=== PATIENT | female | born 1950 | race Caucasian/White ===

== ENCOUNTER 2022-06-14 08:01 | Emergency (ER) | payer MEDICARE, BC, SELFPAY ==
[2022-06-14 08:18] VITALS: BP 174/79; PULSE 60; RESP 18; TEMP 36.6; O2SAT 100; BMI 19.7
--- NOTE | 2022-06-14 08:33 | ED.FALL ---
HPI - Fall General Chief Complaint: Fall Stated Complaint: fall LT shoulder injury t-1 Time Seen by Provider: 06/14/22 08:33 Source: patient Mode of arrival: Ambulatory History of Present Illness HPI Narrative: Patient is a 71-year-old healthy female who presents with left shoulder pain. She says she fell in the dark yesterday around 2:00 p.m. landing on her left shoulder. She did hit her head but there was no loss of consciousness no nausea vomiting. She is not on any antiplatelet or anticoagulation medication. She denies any numbness tingling or weakness or neck pain. She says she was unable to sleep last night despite 400 mg of ibuprofen due to left shoulder pain. She is significant decreased range of motion. Related Data Previous Rx's Medication Instructions Recorded hydrocodone 5 mg-acetaminophen 325 1 tab PO Q6H PRN pain #10 tabs 06/14/22 mg tablet ondansetron 4 mg disintegrating 4 mg PO Q8H PRN nausea and 06/14/22 tablet vomiting #10 tabs Allergies Allergy/AdvReac Type Severity Reaction Status Date / Time codeine Allergy Verified 06/14/22 08:18 latex Allergy Verified 06/14/22 08:18 Sulfa (Sulfonamide Allergy Verified 06/14/22 08:18 Antibiotics) Patient History Social History Smoking Status: Never smoker Smoking Status: Never smoker Substance Use Type: marijuana Exam Initial Vital Signs Initial Vital Signs: Vital Signs Temperature 97.9 F 06/14/22 08:18 Pulse Rate 60 06/14/22 08:18 Respiratory Rate 18 06/14/22 08:18 Blood Pressure 174/79 H 06/14/22 08:18 Pulse Oximetry 100 06/14/22 08:18 Oxygen Delivery Method 06/14/22 08:18 GENERAL: [Well-appearing, well-nourished] and in [no acute] distress. HEENT: Head atraumatic, very small contusion over left eye but no eye swelling,EOMI, pupils reactive, face symmetric, [moist] mucous membranes NECK: No vertebral tenderness no step-off CARDIOVASCULAR: Regular rate and rhythm without murmurs, rubs or gallops. RESPIRATORY: Breath sounds equal bilaterally, no wheezes rales or rhonchi. EXTREMITIES: Normal range of motion, no clubbing or edema. Neurovascularly intact NEUROLOGICAL: Alert and oriented x4. SKIN: Warm, dry, no laceration, no petechiae, no rashes or lesions. Course Orders Ordered: ED Orders 06/14/22 08:42 Chest [XR chest 2V] Stat XR shoulder LT min 2V Stat Vital Signs Vital signs: Vital Signs - 8 hr 06/14/22 08:18 Temperature 97.9 F Pulse Rate 60 Respiratory Rate 18 Blood Pressure 174/79 H Pulse Oximetry 100 Oxygen Delivery Method Room Air MDM - Fall Imaging Data Extremity x-ray #1: Radiologist's Impression: Comminuted humeral head fracture without dislocation Chest x-ray: Radiologist's Impression: No acute pulmonary process MDM Narrative Medical decision making narrative: Patient had mechanical fall yesterday complaining of left shoulder pain. No sign of concussion no high-risk factors or symptoms. At this time no need for head CT or other imaging. She is is found have a comminuted humeral head fracture. She is placed in a sling pain medication and follow-up with orthopedics Discharge Plan Departure Patient Disposition: Home Clinical Impression: Fracture of head of humerus Instructions: DI for Humeral Fracture Activity Restrictions/Additional Instructions: *You have been diagnosed with humeral head fracture *What to do: At this time keep arm in sling may take off to shower and bathe. Follow-up with orthopedics in the next 1-2 weeks. May ice 20-30 minutes at a time *Continue to take medications as directed --> SENT TO [facility] 1 tablet every 6 hours if needed for severe pain Zofran 4 mg every 8 hours or 30 minutes prior to pain medication if it makes him nauseous *Follow up with your primary care provider in 2-3 days or call [phone] Call and schedule follow-up with orthopedics of your choice today *Return to ER if you should have increasing pain numbness tingling weakness nausea vomiting or any new, worsening or concerning symptoms CONTROLLED SUBSTANCE DISCHARGE (Narcotoic/benzodiazepine/Flexeril/Phenergan) 1. You have been prescribed narcotic medications, it does have acetaminophen/Tylenol/paracetamol in it, DO NOT TAKE MORE THAN 4,00mg in 24 hours of Tylenol. TRAMADOL DOES NOT CONTAIN TYLENOL 2. Please understand that we cannot provide further refills of narcotics, benzodiazepines or controlled substances through the ED and her pain management will need to be through your provider. 3. While on these medications you cannot drive or operate heavy machinery. 4. You cannot sign legal documents or perform any duties such as this. 5. As long as you're taking opiate pain medications he should also be taking a stool softener such as Colace, Dulcolax, MiraLAX or prune juice, to help avoid constipation. Prescriptions: New hydrocodone-acetaminophen 5-325 mg tablet 1 tab PO Q6H PRN (Reason: pain) Qty: 10 0RF ondansetron 4 mg tablet,disintegrating 4 mg PO Q8H PRN (Reason: nausea and vomiting) Qty: 10 0RF Referrals: Crissy Escobar [Primary Care Provider] - Stand Alone Forms: Patient Portal/API
--- NOTE | 2022-06-14 08:42 | DI.RAD.S_ITS ---
PROCEDURE: XR CHEST 2V INDICATIONS: fall pain TECHNIQUE: 2 views of the chest were acquired. COMPARISON: None. FINDINGS: Surgical changes and devices: None. Lungs and pleura: Lungs are clear. No pleural effusions or pneumothorax. Mediastinum: Mediastinal contours are normal. Heart size is normal. Bones and chest wall: No suspicious bony abnormalities. Soft tissues appear unremarkable. IMPRESSION: No acute pulmonary process. Dictated by: Karlee Cope M.D. on 06/14/2022 at 9:27 Approved by: Karlee Cope M.D. on 06/14/2022 at 9:27
--- NOTE | 2022-06-14 08:42 | DI.RAD.S_ITS ---
PROCEDURE: XR SHOULDER LT MIN 2V INDICATIONS: pain fall TECHNIQUE: 3 views of the shoulder were acquired. COMPARISON: None. FINDINGS: Bones: There is a comminuted humeral head fracture with minimal displacement most notable at the tubercle. No suspicious bony lesions. Visualized ribs appear intact. Soft tissues: No suspicious soft tissue calcifications. IMPRESSION: Comminuted humeral head fracture without dislocation. Dictated by: Karlee Cope M.D. on 06/14/2022 at 9:27 Approved by: Karlee Cope M.D. on 06/14/2022 at 9:27
[2022-06-14 09:56] VITALS: BP 163/70; PULSE 64; RESP 16; O2SAT 97
== END 2022-06-14 09:56 | disposition home or self-care (01) ==
PROVIDERS: Emergency Provider Emergency Medicine; PCP Student in an Organized Health Care Education/Training Program
DX: S42.292A Other displaced fracture of upper end of left humerus, initial encounter for closed fracture (principal); W19.XXXA Unspecified fall, initial encounter
CPT/HCPCS: 71046; 73030; 99283; 99284